=== PATIENT | female | born 1995 | race Caucasian/White ===

== ENCOUNTER 2021-01-22 13:59 | Emergency (ER) | payer OTHER ==
--- OUTSIDE RECORDS SUMMARY | 2021-01-22 14:03 | XMS REPORT | Continuity of Care Document ---
:1995 Author Organization [facility] t Address [address] [place] [address] Care Team Providers Name Role Phone SHEKHAR Attending Clinician Unavailable Problems Condition Condition Condition Status Onset Resolution Last Treating Co mments Source Name Details Category Date Date Treatment Clinician Date FOOT PAIN, Condition Active 2012-11-24 Memoria RIGHT 5-17 13:12:47 l FOOT 00:00: Joseluis PAIN, 00 RIGHT Active 10/13/2012 Condition 3 [facility] Closed Closed Problem Active [facility] displaced displaced ity of fracture fracture [place] of fifth of fifth Physic i metatarsal metatarsal an s bone of bone of left foot left foot CLOSED Condition Active 2012-11-24 Mem oria FRACTURE 13:12:47 l OF CLOSED [place] METATARSAL FRACTURE BONE OF METATARSAL BONE Active Condition 11/24/2012 [facility] History of Past Illness Condition Condition Condition Status Onset Resolution Last Treating Co mments Source Name Details Category Date Date Treatment Clinician Date FRACTURE, Condition Inactiv 2012-11-24 2012-11-24 Memoria RADIUS, e 4-25 13:12:47 13:12:47 l DISTAL 00:00: Joseluis FRACTURE, 00 RADIUS, DISTAL Inactive 09/21/2010 Condition 3 [facility] Allergies, Adverse Reactions, Alerts This patient has no known allergies or adverse reactions. Medications Ordered Filled Start Stop Current Ordering Indication Dosage Frequency Signature Comments Components Source Medication Medication Date Date Medication? Clinician (SIG) Name Name ADVIL 200 Yes 2 po as Memor ia MG TABS 6-28 needed l 13:12: Joseluis 47 Vital Signs Vital Name Observation Time Observation Value Comments Source Diastolic (mm Hg) 2012-10-13 18:25:15 Mem orial [place] Heart Rate 2012-10-13 18:25:15 Rand Huggins Systolic (mm Hg) 2012-10-13 18:25:15 Stephon rial Joseluis Systolic (mm Hg) 2010-09-21 15:30:13 Stephon jana Joseluis Diastolic (mm Hg) 2010-09-21 15:30:13 Mem orial [place] Heart Rate 2010-09-21 15:30:13 [facility] [place] Weight 2010-09-21 15:30:13 [facility] [place] Height 2010-09-21 15:30:13 [facility] Procedures This patient has no known procedures. Encounters Start End Encounter Admission Attending Care Care Encounter Source Date/Time Date/Time Type Type Clinicians Facility Department ID 2018-08-09 2018-08-[address] 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 [id number] Access 00:00:00 00:00:00 H, PROVIDER Jeffrey anaya 2017-12-28 2017-12-[address] [facility] [id number] Access 00:00:00 00:00:00 H, PROVIDER Jeffrey anaya 2017-12-16 2017-12-[address] [facility] [id number] Access 00:00:00 00:00:00 H, PROVIDER Jeffrey anaya 2017-01-11 2017-01-11 [facility] [id number] Access 00:00:00 00:00:00 H, PROVIDER Jeffrey anaya 2016-05-28 2016-05-28 [facility] [id number] Access 00:00:00 00:00:00 H, PROVIDER Jeffrey anaya 2016-05-26 2016-05-[address] [facility] [id number] Access 00:00:00 00:00:00 H, PROVIDER Jeffrey anaya 2016-01-12 2016-01-12 Out[facility] [id number] Access 00:00:00 00:00:00 H, PROVIDER Jeffrey anaya 2016-01-09 2016-01-[address] [id number] Access 00:00:00 00:00:00 H, PROVIDER Jeffrey anaya 2015-12-16 2015-12-16 Out[facility] [id number] Access 00:00:00 00:00:00 H, PROVIDER Jeffrey anaya 2015-11-25 2015-11-25 Out[facility] [id number] Access 00:00:00 00:00:00 H, PROVIDER Jeffrey anaya 2015-11-20 2015-11-20 Out[facility] [id number] Access 00:00:00 00:00:00 H, PROVIDER Jeffrey anaya 2015-10-17 2015-10-17 Out[facility] [id number] Access 00:00:00 00:00:00 H, PROVIDER Jeffrey anaya 2015-09-26 2015-09-26 Outpatient [facility] [id number] Access 00:00:00 00:00:00 H, PROVIDER Jeffrey anaya 2015-08-25 2015-08-25 Out[facility] [id number] Access 00:00:00 00:00:00 H, PROVIDER Jeffrey anaya 2015-08-19 2015-08-19 Out[facility] [id number] Access 00:00:00 00:00:00 H, PROVIDER Jeffrey anaya 2015-08-12 2015-08-12 Out[facility] [id number] Access 00:00:00 00:00:00 H, PROVIDER Jeffrey anaya 2015-08-08 2015-08-08 Out[facility] [id number] Access 00:00:00 00:00:00 H, PROVIDER Jeffrey anaya 2015-07-31 2015-07-31 Out[facility] [id number] Access 00:00:00 00:00:00 H, PROVIDER Jeffrey anaya 2015-07-21 2015-07-21 Out[facility] [id number] Access 00:00:00 00:00:00 H, PROVIDER Jeffrey anaya 2015-07-16 2015-07-16 Out[facility] [id number] Access 00:00:00 00:00:00 H, PROVIDER Jeffrey anaya 2015-07-09 2015-07-09 Out[facility] [id number] Access 00:00:00 00:00:00 H, PROVIDER Jeffrey anaya 2015-07-08 2015-07-08 Out[facility] [id number] Access 00:00:00 00:00:00 H, PROVIDER Jeffrey anaya 2015-07-02 2015-07-02 Out[facility] [id number] Access 00:00:00 00:00:00 H, PROVIDER Jeffrey anaay 2015-06-23 2015-06-23 Outpatient [facility] [id number] Access 00:00:00 00:00:00 H, PROVIDER Jeffrey anaya 2015-06-11 2015-06-11 Outpatient [facility] [id number] Access 00:00:00 00:00:00 H, PROVIDER Jeffrey anaya 2015-06-09 2015-06-09 Out[facility] [id number] Access 00:00:00 00:00:00 H, PROVIDER Jeffrey anaya 2015-06-03 2015-06-03 Out[facility] [id number] Access 00:00:00 00:00:00 H, PROVIDER Jeffrey anaya 2015-05-20 2015-05-20 Out[facility] [id number] Access 00:00:00 00:00:00 H, PROVIDER Jeffrey anaya 2015-05-16 2015-05-16 Outpatient [facility] [id number] Access 00:00:00 00:00:00 H, PROVIDER Jeffrey anaya 2015-05-07 2015-05-07 Out[facility] [id number] Access 00:00:00 00:00:00 H, PROVIDER Jeffrey anaya 2015-05-05 2015-05-05 Out[facility] [id number] Access 00:00:00 00:00:00 H, PROVIDER Jeffrey anaya 2015-04-28 2015-04-28 Out[facility] [id number] Access 00:00:00 00:00:00 H, PROVIDER Jeffrey anaya 2015-04-18 2015-04-18 Out[facility] [id number] Access 00:00:00 00:00:00 H, PROVIDER Jeffrey anaya 2015-04-15 2015-04-15 Outpatient [facility] [id number] Access 00:00:00 00:00:00 H, PROVIDER Jeffrey anaya 2015-04-14 2015-04-14 Out[facility] [id number] Access 00:00:00 00:00:00 H, PROVIDER Jeffrey anaya 2015-04-11 2015-04-11 Out[facility] [id number] Access 00:00:00 00:00:00 H, PROVIDER Jeffrey anaya 2015-04-04 2015-04-04 Out[facility] [id number] Access 00:00:00 00:00:00 H, PROVIDER Jeffrey anaya 2014-09-19 2014-09-19 Outpatient [facility] [id number] Access 00:00:00 00:00:00 H, PROVIDER Jeffrey anaya 2014-08-07 2014-08-07 Outpatient [facility] [id number] Access 00:00:00 00:00:00 H, PROVIDER Jeffrey anaya 2014-08-02 2014-08-02 Outpatient [facility] [id number] Access 00:00:00 00:00:00 H, PROVIDER Jeffrey anaya 2014-07-03 2014-07-03 Outpatient [facility] [id number] Access 00:00:00 00:00:00 H, PROVIDER Jeffrey anaya 2014-06-19 2014-06-19 Outpatient [facility] [id number] Access 00:00:00 00:00:00 H, PROVIDER Jeffrey anaya 2014-06-07 2014-06-07 Out[facility] [id number] Access 00:00:00 00:00:00 H, PROVIDER Jeffrey anaya 2014-06-06 2014-06-06 Out[facility] [id number] Access 00:00:00 00:00:00 H, PROVIDER Jeffrey anaya 2014-05-31 2014-05-31 Outpatient [facility] [id number] Access 00:00:00 00:00:00 H, PROVIDER Jeffrey anaya 2014-03-01 2014-03-01 Outpatient [facility] [id number] Access 00:00:00 00:00:00 H, PROVIDER Jeffrey anaya 2012-11-24 2012-11-24 Office nullFlavo Wilson [id number] Memoria 00:00:00 00:00:00 Visit r Office [id number] ariana Huggins 2012-11-03 2012-11-[address] [facility] [id number] 00:00:00 00:00:00 Visit r Office [id number] ariana Huggins 2012-10-13 2012-10-13 Office [facility] [id number] [facility] 00:00:00 00:00:00 Visit r Office [id number] ariana Huggins Results This patient has no known results.
--- NOTE | 2021-01-22 15:39 | EDPHYS ---
Physician Documentation [facility] Name: Viki Benavides Age: 25 yrs Sex: Female : 1995 Arrival Date: 01/22/2021 Time: 14:03 Bed DIS2 Private MD: ED Physician Jesus Feliz HPI: 01/22 15:34 This 25 yrs old Female presents to ER via Ambulatory with complaints of srinivasan Facial Swelling, Bee Sting. 15:34 by a bee. Onset: The symptoms/episode began/occurred yesterday. Secondary to the bite srinivasan the patient reports swelling. Associated signs and symptoms: Pertinent positives: erythema at site, pain at site. Severity of symptoms: At their worst the symptoms were mild, moderate, in the emergency department the symptoms are actually worse. The patient has experienced similar episodes in the past, a few times. Historical: - Allergies: 14:15 No Known Allergies; sv - PMHx: 14:15 None; sv - Immunization history:: Client reports receiving the 2nd dose of the Covid vaccine, Client reports receiving the 1st dose of the Covid vaccine. - Social history:: Smoking status: Patient denies any tobacco usage or history of. ROS: 15:35 Constitutional: Negative for fever, chills, and weight loss, Eyes: Negative for injury, srinivasan pain, redness, and discharge, ENT: Negative for injury, pain, and discharge, Neck: Negative for injury, pain, and swelling, Cardiovascular: Negative for chest pain, palpitations, and edema, Respiratory: Negative for shortness of breath, cough, wheezing, and pleuritic chest pain, Abdomen/GI: Negative for abdominal pain, nausea, vomiting, diarrhea, and constipation, Back: Negative for injury and pain, : Negative for injury, bleeding, discharge, and swelling, MS/Extremity: Negative for injury and deformity, Neuro: Negative for headache, weakness, numbness, tingling, and seizure, Psych: Negative for depression, anxiety, suicide ideation, homicidal ideation, and hallucinations, Allergy/Immunology: Negative for hives, rash, and allergies, Endocrine: Negative for neck swelling, polydipsia, polyuria, polyphagia, and marked weight changes, Hematologic/Lymphatic: Negative for swollen nodes, abnormal bleeding, and unusual bruising. 15:35 Skin: Positive for erythema, swelling, of the forehead and right anglican. Exam: 15:35 Constitutional: This is a well developed, well nourished patient who is awake, alert, srinivasan and in no acute distress. Eyes: Pupils equal round and reactive to light, extra-ocular motions intact. Lids and lashes normal. Conjunctiva and sclera are non-icteric and not injected. Cornea within normal limits. Periorbital areas with no swelling, redness, or edema. ENT: Nares patent. No nasal discharge, no septal abnormalities noted. Tympanic membranes are normal and external auditory canals are clear. Oropharynx with no redness, swelling, or masses, exudates, or evidence of obstruction, uvula midline. Mucous membranes moist. Neck: Trachea midline, no thyromegaly or masses palpated, and no cervical lymphadenopathy. Supple, full range of motion without nuchal rigidity, or vertebral point tenderness. No Meningismus. Chest/axilla: Normal chest wall appearance and motion. Nontender with no deformity. No lesions are appreciated. Cardiovascular: Regular rate and rhythm with a normal S1 and S2. No gallops, murmurs, or rubs. Normal PMI, no JVD. No pulse deficits. Respiratory: Lungs have equal breath sounds bilaterally, clear to auscultation and percussion. No rales, rhonchi or wheezes noted. No increased work of breathing, no retractions or nasal flaring. Abdomen/GI: Soft, non-tender, with normal bowel sounds. No distension or tympany. No guarding or rebound. No evidence of tenderness throughout. Back: No spinal tenderness. No costovertebral tenderness. Full range of motion. Skin: Warm, dry with normal turgor. Normal color with no rashes, no lesions, and no evidence of cellulitis. MS/ Extremity: Pulses equal, no cyanosis. Neurovascular intact. Full, normal range of motion. Neuro: Awake and alert, GCS 15, oriented to person, place, time, and situation. Cranial nerves II-XII grossly intact. Motor strength 5/5 in all extremities. Sensory grossly intact. Cerebellar exam normal. Normal gait. Psych: Awake, alert, with orientation to person, place and time. Behavior, mood, and affect are within normal limits. 15:35 Head/face: Noted is erythema, swelling, tenderness, that is moderate, of the forehead and right anglican. Vital Signs: 14:15 BP 119 / 101; Pulse 94; Resp 18; Temp 97.8; Pulse Ox 100% ; Weight 86.18 kg; Height 5 sv ft. 3 in. (160.02 cm); Pain 0/10; 15:49 BP 120 / 90; Pulse 92; Resp 16; Pulse Ox 98% on R/A; zb 14:15 Body Mass Index 33.66 (86.18 kg, 160.02 cm) sv MDM: 14:40 Patient medically screened. srinivasan 15:35 Differential diagnosis: cellulitis, anaphylaxis, angioedema. Data reviewed: vital srinivasan signs, nurses notes. Data interpreted: ekg monitor tech: rate is 94 beats/min, rhythm is regular, Pulse oximetry: on room air is 100 %. Counseling: I had a detailed discussion with the patient and/or guardian regarding: the historical points, exam findings, and any diagnostic results supporting the discharge/admit diagnosis, the need for outpatient follow up, for definitive care, a family practitioner. Administered Medications: 15:46 Drug: Atarax (hydrOXYzine) 50 mg Route: PO; zb 15:47 Follow up: Response: Medication administered at discharge. zb 15:46 Drug: Bactrim (trimethoprim-sulfamethoxazole) (160 mg-800 mg (DS) 1 tablet Route: PO; zb 15:47 Follow up: Response: Medication administered at discharge. zb 15:46 Drug: predniSONE 60 mg Route: PO; zb 15:47 Follow up: Response: Medication administered at discharge. zb 15:46 Drug: Pepcid (famotidine) 40 mg Route: PO; zb 15:46 Follow up: Response: Medication administered at discharge. zb Disposition Summary: 01/22/21 15:38 Discharge Ordered Location: Home srinivasan Problem: new srinivasan Symptoms: have improved srinivasan Condition: Stable srinivasan Diagnosis - Toxic effect of venom of bees, accidental (unintentional) srinivasan Followup: srinivasan - With: Private Physician - When: 2 - 3 days - Reason: Recheck today's complaints, Continuance of care, Re-evaluation by your physician Discharge Instructions: - Discharge Summary Sheet srinivasan - Bee, Wasp, or Hornet Sting, Adult srinivasan Forms: - Medication Reconciliation Form srinivasan - Thank You Letter srinivasan - Antibiotic Education srinivasan - Prescription Opioid Use srinivasan Prescriptions: - EpiPen 2-Enrrique - inject 1 application by SUBCUTANEOUS route one time; 1 box; Refills: 0, Product srinivasan Selection Permitted - Hydroxyzine HCl 50 mg Oral Tablet - take 1 tablet by ORAL route every 6 hours As needed; 28 tablet; Refills: 0, [facility] Product Selection Permitted - Pepcid 20 mg Oral Tablet - take 1 tablet by ORAL route every 12 hours for 15 days; 30 tablet; Refills: 0, [facility] Product Selection Permitted - Bactrim DS 800-160 mg Oral Tablet - take 1 tablet by ORAL route every 12 hours for 10 days; 20 tablet; Refills: 0, [facility] Product Selection Permitted - Prednisone 20 mg Oral Tablet - take 2 tablets by ORAL route once daily for 5 days; 10 tablet; Refills: 0, [facility] Product Selection Permitted Signatures: Joann Wyatt RN RN sv Anderson, Corey, MD MD cha Brown, Zipporah, RN RN zb
--- NOTE | 2021-01-22 15:39 | ER ---
Nurse's Notes [facility] Name: Viki Benavides Age: 25 yrs Sex: Female : 1995 Arrival Date: 01/22/2021 Time: 14:03 Bed DIS2 Private MD: Diagnosis: Toxic effect of venom of bees, accidental (unintentional) Presentation: 01/22 14:14 Chief complaint: Patient states: stung by a red wasp yesterday morning to her right sv jew. c/o swelling. Denies pain at this time. Coronavirus screen: Client denies travel out of the [place] in the last 14 days. At this time, the client does not indicate any symptoms associated with coronavirus-19. Ebola Screen: No symptoms or risks identified at this time. Anaphylaxis evaluation, no signs or symptoms of anaphylaxis were noted. Risk Assessment: Do you want to hurt yourself or someone else? Patient reports no desire to harm self or others. Onset of symptoms was January 21, 2021. 14:14 Method Of Arrival: Ambulatory sv 14:14 Acuity: ESTEFANY 4 sv 14:15 Onset: The symptoms/episode began/occurred yesterday. Initial Sepsis Screen: Does the sv patient meet any 2 criteria? No. Patient's initial sepsis screen is negative. Does the patient have a suspected source of infection? No. Patient's initial sepsis screen is negative. Triage Assessment: 14:18 General: Appears in no apparent distress. comfortable, Behavior is calm, cooperative, sv appropriate for age. Pain: Denies pain. Neuro: Level of Consciousness is awake, alert, obeys commands, Gait is steady. Respiratory: Airway is patent Respiratory effort is even, unlabored, Respiratory pattern is regular, symmetrical, Denies shortness of breath air hunger. Historical: - Allergies: 14:15 No Known Allergies; sv - PMHx: 14:15 None; sv - Immunization history:: Client reports receiving the 2nd dose of the Covid vaccine, Client reports receiving the 1st dose of the Covid vaccine. - Social history:: Smoking status: Patient denies any tobacco usage or history of. Screenin:48 Abuse screen: Denies threats or abuse. Denies injuries from another. Nutritional zb screening: No deficits noted. Tuberculosis screening: No symptoms or risk factors identified. Fall Risk None identified. Assessment: 15:47 General: Appears in no apparent distress. uncomfortable, Behavior is calm. Pain: Denies zb pain. Neuro: Level of Consciousness is awake, obeys commands, Oriented to person, place, time, Associate Quality Engineer are equal bilaterally Moves all extremities. Full function. Cardiovascular: Reports None. Respiratory: Airway is patent Respiratory effort is even, unlabored, Respiratory pattern is regular, symmetrical, Breath sounds are clear bilaterally. Derm: Skin is red. Musculoskeletal: Swelling present in face and right jew and forehead. Vital Signs: 14:15 BP 119 / 101; Pulse 94; Resp 18; Temp 97.8; Pulse Ox 100% ; Weight 86.18 kg; Height 5 sv ft. 3 in. (160.02 cm); Pain 0/10; 15:49 BP 120 / 90; Pulse 92; Resp 16; Pulse Ox 98% on R/A; zb 14:15 Body Mass Index 33.66 (86.18 kg, 160.02 cm) sv ED Course: 14:03 Patient arrived in ED. as 14:14 Arm band placed on. sv 14:15 Triage completed. sv 14:40 Jesus Feliz MD is Attending Physician. srinivasan 14:42 Ave Yu RN is Primary Nurse. zb 15:48 Patient has correct armband on for positive identification. Pulse ox on. NIBP on. Door zb closed. Noise minimized. 15:48 No provider procedures requiring assistance completed. Patient did not have IV access zb during this emergency room visit. Administered Medications: 15:46 Drug: Atarax (hydrOXYzine) 50 mg Route: PO; zb 15:47 Follow up: Response: Medication administered at discharge. zb 15:46 Drug: Bactrim (trimethoprim-sulfamethoxazole) (160 mg-800 mg (DS) 1 tablet Route: PO; zb 15:47 Follow up: Response: Medication administered at discharge. zb 15:46 Drug: predniSONE 60 mg Route: PO; zb 15:47 Follow up: Response: Medication administered at discharge. zb 15:46 Drug: Pepcid (famotidine) 40 mg Route: PO; zb 15:46 Follow up: Response: Medication administered at discharge. zb Outcome: 15:38 Discharge ordered by . srinivasan 15:48 Discharged to home ambulatory, with family. zb 15:48 Condition: stable 15:48 Discharge instructions given to patient, Instructed on discharge instructions, follow up and referral plans. medication usage, Demonstrated understanding of instructions, follow-up care, medications, Prescriptions given X 5 15:51 Patient left the ED. zb Signatures: Joann Wyatt, RN RN Jesus Godinez MD MD cha Martinez, Amelia as Brown, Zipporah, RN RN zb Corrections: (The following items were deleted from the chart) 14:19 14:15 Pulse 94bpm; Resp 18bpm; Pulse Ox 100%; Temp 97.8F; 86.18 kg; Height 5 ft. 3 in.; sv BMI: 33.6; Pain 0/10; sv
[2021-01-22 15:57] VITALS: TEMP 97.8
[2021-01-22 15:59] VITALS: BP 120/90; O2SAT 98
[2021-01-22] MEDS ORDERED: hydrOXYzine HCL 25 MG TAB ONE (16:05)
[2021-01-22] MEDS ORDERED: predniSONE 20 MG TAB ONE (16:05)
[2021-01-22] MEDS ORDERED: SMZ./TMP. 800/160 MG TABLET ONE (16:05)
[2021-01-22] MEDS ORDERED: FAMOTIDINE 20 MG TAB ONE (16:06)
== END 2021-01-22 15:51 | disposition home or self-care (01) ==
LOC: ER 13:59
DX: T63.441A Toxic effect of venom of bees, accidental (unintentional), initial encounter (principal)
CPT/HCPCS: 99283; J7512